=== PATIENT | male | born 1940 | race Caucasian/White ===

== ENCOUNTER → 2016-05-14 | Outpatient (CLI) | payer MEDICARE, OTHER ==
[2016-05-14 16:14] LABS: ANION GAP 9 (5-19); BLOOD UREA NITROGEN 35 mg/dL (7-20); CALCIUM 8.8 mg/dL (8.4-10.2); CARBON DIOXIDE 23 mmol/L (22-30); CHLORIDE 102 mmol/L (98-107); CREATININE RESULT 1.47 mg/dL (0.52-1.25); GLUCOSE 90 mg/dL (75-110); SODIUM 134.2 mmol/L (137-145)
== END ==
LOC: OD 14:29
PROVIDERS: ATTEND Internal Medicine Cardiovascular Disease
DX: R06.02 Shortness of breath (principal)
CPT/HCPCS: 36415; 80048

== ENCOUNTER → 2016-10-31 | Outpatient (CLI) | payer MEDICARE ==
[2016-10-31 15:55] LABS: ANION GAP 10 (5-19); BLOOD UREA NITROGEN 45 mg/dL (7-20); CALCIUM 8.9 mg/dL (8.4-10.2); CARBON DIOXIDE 24 mmol/L (22-30); CHLORIDE 99 mmol/L (98-107); CREATININE RESULT 1.57 mg/dL (0.52-1.25); GLUCOSE 178 mg/dL (75-110); POTASSIUM 5.3 mmol/L (3.6-5.0); SODIUM 132.8 mmol/L (137-145)
== END ==
LOC: OD 13:49
PROVIDERS: ATTEND Internal Medicine Cardiovascular Disease
DX: I50.9 Heart failure, unspecified (principal); I10 Essential (primary) hypertension; R06.02 Shortness of breath; I25.5 Ischemic cardiomyopathy
CPT/HCPCS: 36415; 80048

== ENCOUNTER 2018-02-28 10:00 | Emergency (ER) | payer MEDICARE ==
[2018-02-28] MEDS ORDERED: KETAMINE HCL INJ 500 MG/10 ML VIAL ONE (10:06)
[2018-02-28] MEDS ORDERED: EPINEPHRINE INJ 1 MG/10 ML DISP.SYRIN IV ONE ×6 (10:07→10:39)
[2018-02-28] MEDS ORDERED: AMIODARONE HCL 150 MG in DEXTROSE 5%-WATER 100 ML IV ONE (10:10)
[2018-02-28] MEDS ORDERED: CALCIUM GLUCONATE 1000 MG/10 ML INJ IV ONE ×2 (10:13→20:10)
[2018-02-28] MEDS ORDERED: DOPAMINE HCL/DEXTROSE 5%-WATER 800 MG/250 ML RTUINJ IV PRN (10:21)
[2018-02-28 10:42] LABS: INTERNATIONAL RATION (INR) 2.16; PROTHROMBIN TIME 25.1 SEC (11.4-15.4)
[2018-02-28 10:42] LABS: ABSOLUTE BASOPHILS # (AUTO) 0.1 10^3/uL (0.0-0.2); ABSOLUTE EOSINOPHILS # (AUTO) 0.1 10^3/uL (0.0-0.6); ABSOLUTE LYMPHOCYTES (AUTO) 1.9 10^3/uL (0.5-4.7); ABSOLUTE MONOCYTES (AUTO) 0.5 10^3/uL (0.1-1.4); ABSOLUTE NEUT (AUTO) 7.7 10^3/uL (1.7-8.2); BASOPHILS % (AUTO) 0.5 % (0-2); EOSINOPHILS % (AUTO) 1.2 % (0-6); HEMATOCRIT 30.2 % (37.9-51.0); HEMOGLOBIN 9.5 g/dL (13.5-17.0); LYMPHOCYTES % (AUTO) 18.6 % (13-45); MEAN CORPUSCULAR HEMOGLOBIN 27.3 pg (27.0-33.4); MEAN CORPUSCULAR HGB CONC 31.4 g/dL (32.0-36.0); MEAN CORPUSCULAR VOLUME 87 fl (80-97); MONOCYTES % (AUTO) 4.5 % (3-13); PLATELET COUNT 163 10^3/uL (150-450); RED BLOOD COUNT 3.47 10^6/uL (4.35-5.55); RED CELL DISTRIBUTION WIDTH 16.4 % (11.5-14.0); SEGMENTED NEUTROPHILS % (AUTO) 75.2 % (42-78); TOTAL CELLS COUNTED % (AUTO) 100 %; WHITE BLOOD COUNT 10.3 10^3/uL (4.0-10.5)
--- NOTE | 2018-02-28 10:44 | ER Document Report ---
ED General - General Chief Complaint: Cardiac Arrest Stated Complaint: CARDIAC ARREST Time Seen by Provider: 02/28/18 10:32 Mode of Arrival: Medic Information source: Emergency Med Personnel Cannot obtain history due to: Intubated, Unstable vital signs TRAVEL OUTSIDE OF THE [place] 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 His family initiated CPR at the scene. Thereafter EMS was called upon arrival they noted that the patient was in PEA, he subsequently underwent several rounds of CPR with a transition briefly between PEA as well as a bradycardic rhythm with what appeared to be ST segment elevations. Prior to arrival they had called air transport because of the concern of a STEMI. Prior to arrival the patient had a return of circulation after 6 rounds of epinephrine, 1 amp of bicarb, 1 amp of calcium. Rest of history is limited secondary to this patient's unresponsive status. - Related Data Allergies/Adverse Reactions: No Known Allergies Allergy (Unverified 06/01/10 10:13) Past Medical History - General Cannot obtain history due to: Intubated, Unstable vital signs - Social History Smoking Status: Unknown if Ever Smoked Family History: Reviewed & Not Pertinent Skin Medical History: Denies Hx MRSA Review of Systems - Review of Systems -: Yes ROS unobtainable due to patient's medical condition Physical Exam - Vital signs Vitals: Resp 11 L 02/28/18 10:02 - General General appearance: Unresponsive In distress: Severe - HEENT Head: Normocephalic Eyes: Normal Conjunctiva: Normal Cornea: Normal Pupils: Dilated - Pupils are asymmetric, slightly dilated right greater than left -: bilateral: Pupils uneven - Respiratory Respiratory status: Respiratory distress Chest status: Other - Midline sternotomy scar, ecchymoses overlying the chest Breath sounds: Rales, Rhonchi Chest palpation: [place] frothy sputum - Cardiovascular Rhythm: Bradycardia Heart sounds: Normal auscultation Murmur: No - Abdominal Inspection: Obese Distension: Distended Tenderness: Nontender - Back Back: Normal - Extremities General upper extremity: Normal inspection, Nontender, Normal color, Normal ROM, Normal temperature General lower extremity: Normal inspection, Nontender, Normal color, Normal ROM, Normal temperature, Normal weight bearing. No: Lasha's sign - Neurological Neuro grossly intact: No Cognition: Other - Unresponsive [place] Coma Scale Eye Opening: None [place] Coma Scale Verbal: None Nettie Coma Scale Motor: None Nettie Coma Scale Total: 3 - Skin Skin Temperature: Cold Course - Re-evaluation Re-evalutation: 02/28/18 15:30 This 77-year-old man presented for concern of ST segment myocardial infarction after an episode of witnessed cardiac arrest today. He underwent prolonged CPR at home. Following 6 rounds of epinephrine, 1 amp of bicarb and 1 amp of calcium the patient did have a return of spontaneous circulation. Upon arrival he had a Roberto airway in place and was receiving bag breaths. His initial blood pressure was around 110 systolic. He had a palpable carotid pulse and a palpable femoral pulse. While initiating resuscitation emergently in trauma bay patient was being placed on panel monitor as well as access being obtained with an IV bilaterally the patient's pulse became thready subsequently there was a repeated cardiac arrest. He had an IO in place and is lower extremity. IV in the left upper extremity was utilized, epinephrine was administered via IV. Chest compressions were administered continuously, the patient's rhythm was identified as pulseless electrical activity with a rate of approximately 75, breath sounds were appreciable bilaterally without any obvious pericardial effusion identified on bedside echo. Patient briefly had what appeared to be a wide-complex tachycardia which resolved and again returned to a pulseless electrical activity rhythm, as such 150 of amiodarone was administered IV. Following 2 rounds of epinephrine as well as amiodarone and a gram of calcium the patient had a return of spontaneous circulation. At that time the decision was made to initiate an infusion of dopamine. Dopamine was started at 10 mics per kilo per minute with a dosing weight of 100 kg. Subsequently swapped the patient's Roberto airway for a 8 oh ET tube via glide scope intubation without any paralytic or induction agent. Emergently attempted to contact this patient's family via phone based on previous information available, 2 numbers were called neither of which were active. During attempts to obtain contact with family patient subsequently had a bradycardic and then PEA cardiac arrest, epinephrine and chest compressions were again started. The patient had a return of spontaneous circulation thereafter. At that time the patient has had intermittent cardiac arrest for approximately 35 minutes in the emergency department as well as approximately 30 minutes prior to arrival. His EKG again demonstrated what appeared to be ST segment elevations in leads I and aVL with depressions in V3 V4 V5. Contacted [facility] cardiac Care spoke to on-call computer science instructor Dr. Hinds about patient's ST segment elevation myocardial infarction and prolonged downtime in discussion we discussed risks and benefits and made determination to defer the administration of thrombolytics. After discussing case with Dr. Hinds discussed with transport team who is at the bedside. During this time patient's family arrived in the emergency department and was brought to the family waiting room. Discussed with the patient's family including his sister, [id number], and niece the current state of the patient being intubated as well as requiring a me dication to keep his blood pressure elevated. They noted that he would not want to be intubated or have a prolonged course, they requested that the patient not undergo transport to a different facility and that we not pursue any further life prolonging intervention. We spent some time discussing treatment options and made determination to transition this patient to comfort care. Brought family to bedside, updated [facility] Dr. Hinds that patient would not be transported, I did discuss with the family that the patient's prognosis was dire if we did not intervene given that he likely sustained a substantial heart attack in addition to a prolonged downtime. They again reiterated their desire to pursue comfort care. Dopamine was subsequently turned off. The patient did demonstrate some agonal breaths however did not demonstrate any appreciable purposeful movements. He was ventilated subsequently I down titrated this patient's oxygen level and his respiratory rate to approximately 8 administered morphine for air hunger and a dose of Dilaudid as well for possible pain. Approximately 30 minutes after the transition of this patient's treatment his heart rate down trended and his blood pressure became undetectable. At 12:08 PM this patient was declared . The ventilator was turned off at that time. Family was at the bedside at the time of passing, time was offered to answer questions. - Vital Signs Vital signs: Temp Pulse Resp BP Pulse Ox 11 L 54/39 L 73 L 02/28/18 12:01 02/28/18 12:01 02/28/18 12:01 - Laboratory Result Diagrams: 02/28/18 10:15 02/28/18 10:15 Laboratory results interpreted by me: 02/28/18 02/28/18 02/28/18 10:15 10:15 10:23 RBC 3.47 L Hgb 9.5 L Hct 30.2 L MCHC 31.4 L RDW 16.4 H PT 25.1 H Sodium 132.4 L Carbon Dioxide 16 L BUN 26 H Est GFR (Non-Af Amer) 56 L Glucose 227 H AST 111 H ALT 76 H Total Protein 5.2 L Albumin 2.9 L Procedures - Intubation Orotracheal Airway evaluation: Abnormal 3-3-2 rule, Large tongue, Obese Mallampati Classification: Class 3 Intubation method: Orotracheal Blade type: Kennedy Blade size: 3 Equipment used: Glidescope ETT size: 8.0 ETT secured at: Teeth ETT secured at (cm): 22 Breath Sounds after Intubation: Equal End tidal CO2 confirmed: Yes Ventilator settings: SIMV Tidal volume: 500 FiO2: 100 Respirations: 12 PEEP: 5 Post Intubation Xray: No Intubation Complications: No complications - Ultrasound/Bedside Ultrasound/Bedside Ultrasound: Other - No obvious pericardial effusion, cardiac quiver, no cardiac standstill, Critical Care Note - Critical Care Note Total time excluding time spent on procedures (mins): 65 Discharge - Discharge Clinical Impression: Cardiac arrest, Hypoxia STEMI (ST elevation myocardial infarction) Qualifiers: Involved coronary artery: unspecified coronary artery Qualified Code(s): I21.3 - ST elevation (STEMI) myocardial infarction of unspecified site Condition: Stable Disposition: Referrals: ZENA FLETCHER MD [Primary Care Provider] - Follow up as needed
[2018-02-28 10:50] LABS: ALANINE AMINOTRANSFERASE 76 U/L (21-72); ALBUMIN 2.9 g/dL (3.5-5.0); ALKALINE PHOSPHATASE 87 U/L (38-126); ANION GAP 18 (5-19); ASPARTATE AMINO TRANSFERASE 111 U/L (17-59); BILIRUBIN,DIRECT 0.4 mg/dL (0.0-0.4); BILIRUBIN,TOTAL 0.5 mg/dL (0.2-1.3); BLOOD UREA NITROGEN 26 mg/dL (7-20); CALCIUM 9.4 mg/dL (8.4-10.2); CARBON DIOXIDE 16 mmol/L (22-30); CHLORIDE 98 mmol/L (98-107); CREATINE KINASE 119 U/L (55-170); GLUCOSE 227 mg/dL (75-110); POTASSIUM 4.1 mmol/L (3.6-5.0); SODIUM 132.4 mmol/L (137-145); TOTAL PROTEIN 5.2 g/dL (6.3-8.2)
[2018-02-28] MEDS ORDERED: MORPHINE SULFATE 10 MG/ML INJ IV PRN (10:59)
[2018-02-28 11:01] LABS: CREATINE KINASE MB 4.11 ng/mL (<4.55)
[2018-02-28 11:04] LABS: TROPONIN I 0.098 ng/mL
--- NOTE | 2018-02-28 11:10 | RADIOLOGY REPORT (SQ) ---
EXAM DESCRIPTION: CHEST SINGLE VIEW COMPLETED DATE/TIME: 02/28/2018 10:58 am REASON FOR STUDY: cardiac arrest COMPARISON: 06/01/2010 EXAM PARAMETERS: NUMBER OF VIEWS: One view. TECHNIQUE: Single frontal radiographic view of the chest acquired. RADIATION DOSE: NA LIMITATIONS: None. FINDINGS: LUNGS AND PLEURA: Diffuse bilateral alveolar opacities throughout both lungs from pulmonar y edema. ARDS or pneumonia could have this appearance. Chronic blunting right lateral costophrenic sulcus unchanged from 06/01/2010. No pleural effusions. No pneumothorax. MEDIASTINUM AND HILAR STRUCTURES: No masses. Contour normal. HEART AND VASCULAR STRUCTURES: Stable cardiomegaly and old sternotomy for CABG BONES: No acute findings. HARDWARE: Endotracheal tube tip 5 cm above the padmaja. Nasogastric tube tip and side port in the sto mach OTHER: No other significant finding. IMPRESSION: Diffuse bilateral alveolar infiltrates, likely from pulmonary edema. ARDS or pneumonia could have this appearance. TECHNICAL DOCUMENTATION: JOB ID: [id number] [employer]- All Rights Reserved Reading location - IP/workstation name: [facility]
[2018-02-28] MEDS ORDERED: HYDROMORPHONE HCL INJ/PF 2 MG/ML AMPULE IV ONE (11:28)
[2018-02-28 12:29] VITALS: BP 54/39
--- NOTE | 2018-02-28 13:13 | EKG REPORT ---
SEVERITY:- ABNORMAL ECG - POSSIBLE ATRIAL ARRHYTHMIA, A-RATE 181 A. FIB. NONSPECIFIC IVCD WITH LAD CONSIDER LATERAL WALL RI. = REPEAT EKG CHECKING PROPER PLACEMENT LIMB LEADS. OLD INFERIOR RI. : Confirmed by: Eligio Vela MD 28-Feb-2018 13:13:10
[2018-02-28] MEDS ORDERED: ROCURONIUM BROMIDE INJ 50 MG/5 ML VIAL IV ONE (15:37)
[2018-02-28] MEDS ORDERED: AMIODARONE HCL INJ 150 MG/3 ML VIAL IV ONE (20:10)
[2018-02-28] MEDS ORDERED: EPINEPHRINE INJ 1 MG/10 ML DISP.SYRIN ONE (20:10)
== END 2018-02-28 15:47 | disposition expired ==
LOC: ER 10:00
PROC: 0BH17EZ Insertion of Endotracheal Airway into Trachea, Via Natural or Artificial Opening (ICD-10-PCS; principal; 2018-02-28)
DX: I46.9 Cardiac arrest, cause unspecified (principal); I21.3 ST elevation (STEMI) myocardial infarction of unspecified site; R09.02 Hypoxemia
CPT/HCPCS: 93005; 99291; 92950; 51702; 96374; 96375; 36415; 82553; 82550; 85025; 85610; 80053; 84484; 71045; 93010; 31500; J0610; J3490; J1265; J0171; J2270; J1170; J0282